=== PATIENT | male | born 1975 | race African-American/Black ===

== ENCOUNTER 2019-06-06 06:02 | Emergency (ER) | payer MEDICAID ==
[~2019-06-06] VITALS: Ht 170.2 cm; Wt 72.7 kg
[2019-06-06 06:16] VITALS: BP 135/98; Ht 170.2 cm; Wt 72.7 kg
[2019-06-06] MEDS ORDERED: SEROQUEL XR200 MG PO (06:17)
[2019-06-06] MEDS ORDERED: PROZAC40 MG PO (06:17)
[2019-06-06] MEDS ORDERED: LIBRIUM25 MG (06:17)
[2019-06-06 06:47] LABS: CALC OSMOLALITY 265 mosm/kg (275-300); CALCIUM 8.2 mg/dL (8.5-10.1); CHLORIDE - SERUM 98 mmol/L (98-107); CREATININE - SERUM 0.9 mg/dL (0.6-1.3); GLUCOSE 84 mg/dL (74-106); POTASSIUM - SERUM 3.1 mmol/L (3.5-5.1); SODIUM 134 mmol/L (136-145); UREA NITROGEN 9 mg/dL (7-18); eGFR NON AFRICAN AMERICAN > 90 mL/min (90-120)
[2019-06-06 06:53] LABS: ALBUMIN 3.8 g/dL (3.4-5.0); ALKALINE PHOSPHATASE 98 U/L (30-120); ALT (SGPT) 47 U/L (10-68); BILIRUBIN - TOTAL 0.91 mg/dL (0.2-1.3); PROTEIN - SERUM 7.1 g/dL (6.4-8.2)
[2019-06-06 06:54] LABS: BASOPHILS 0.1 % (0-2); EOSINOPHILS 0.1 % (0-7); HEMATOCRIT 42.7 % (42.0-54.0); HEMOGLOBIN 13.5 g/dL (13.5-17.5); IMMATURE GRANULOCYTES 0.3 % (0-5); MCH 32.2 pg (26.0-34.0); MCHC 31.6 g/dL (31.0-37.0); MCV 101.9 fL (80.0-100.0); MEAN PLATELET VOLUME 10.3 fL (7.4-10.4); MONOCYTES 7.9 % (2-11); NEUTROPHILS 74.6 % (40-80); PLATELET COUNT 218 10x3/uL (130-400); RBC 4.19 10x6/uL (4.20-6.10); RDW 12.5 % (11.5-14.5); WBC 10.7 10x3/uL (4.8-10.8)
[2019-06-06 07:07] LABS: BILIRUBIN NEGATIVE (NEGATIVE); GLUCOSE NEGATIVE (NEGATIVE); KETONE LARGE mg/dL (NEGATIVE); NITRITE NEGATIVE (NEGATIVE); UROBILINOGEN NORMAL (NORMAL)
[2019-06-06 07:10] LABS: UDS - AMPHET POSITIVE QUAL (NEGATIVE); UDS - BARB NEGATIVE QUAL (NEGATIVE); UDS - BENZO NEGATIVE QUAL (NEGATIVE); UDS - COCAINE NEGATIVE QUAL (NEGATIVE); UDS - OPIATE NEGATIVE QUAL (NEGATIVE); UDS - PCP NEGATIVE QUAL (NEGATIVE); UDS - THC NEGATIVE QUAL (NEGATIVE)
== END 2019-06-06 08:26 | disposition home or self-care (01) ==
LOC: D.ER 06:02 → EDBD 06:02 → D.ER 08:26
PROVIDERS: Family Medicine
DX: F22 Delusional disorders (principal); F32.9 Major depressive disorder, single episode, unspecified; F15.10 Other stimulant abuse, uncomplicated